=== PATIENT | male | born 1965 | race Two or more races ===

== ENCOUNTER 2019-05-18 03:28 | Emergency (ER) | payer OTHER ==
[~2019-05-18] VITALS: Ht 172.7 cm; Wt 90.7 kg
[~2019-05-18 03:28] MED LIST: ATENOLOL25 MG
== END 2019-05-18 05:46 | disposition home or self-care (01) ==
LOC: ER 03:28
DX: T18.198A Other foreign object in esophagus causing other injury, initial encounter (principal); W45.8XXA Other foreign body or object entering through skin, initial encounter; Y93.89 Activity, other specified; Y92.89 Other specified places as the place of occurrence of the external cause; Y99.8 Other external cause status

== ENCOUNTER → 2020-10-16 | Outpatient (CLI) | payer OTHER | END | disposition home or self-care (01) | LOC: PPH VACUNA | DX: Z23 Encounter for immunization (principal) ==

== ENCOUNTER 2020-11-03 09:56 | Emergency (ER) | payer OTHER ==
[~2020-11-03] VITALS: Ht 172.7 cm; Wt 88.5 kg
== END 2020-11-03 11:55 | disposition home or self-care (01) ==
LOC: ER 09:56
DX: H92.02 Otalgia, left ear (principal); G89.18 Other acute postprocedural pain

== ENCOUNTER 2020-11-06 08:47 | Outpatient (CLI) | payer OTHER | END 2020-11-06 08:48 | disposition home or self-care (01) | LOC: PPH VACUNA 08:47 | DX: Z23 Encounter for immunization (principal) ==

== ENCOUNTER 2021-01-30 14:56 | Outpatient (CLI) | payer OTHER | END 2021-01-30 14:57 | disposition home or self-care (01) | LOC: LAB 14:56 | PROVIDERS: ATTEND Surgery | DX: R97.20 Elevated prostate specific antigen [PSA] (principal) ==

== ENCOUNTER 2021-02-06 07:13 | Outpatient (CLI) | payer OTHER | END 2021-02-06 07:18 | disposition home or self-care (01) | LOC: SONOGRAMA 07:13 | PROVIDERS: ATTEND Surgery | DX: D29.1 Benign neoplasm of prostate (principal); R97.20 Elevated prostate specific antigen [PSA] ==

== ENCOUNTER 2021-09-19 08:00 | Outpatient (CLI) | payer OTHER | END 2021-09-19 08:30 | disposition home or self-care (01) | LOC: PPH VACUNA 08:00 | PROVIDERS: ATTEND Emergency Medicine Pediatric Emergency Medicine | DX: Z23 Encounter for immunization (principal) ==

== ENCOUNTER 2021-11-12 14:25 | Outpatient (CLI) | payer OTHER | END 2021-11-12 14:39 | disposition home or self-care (01) | LOC: LAB 14:25 | DX: R97.20 Elevated prostate specific antigen [PSA] (principal) ==

== ENCOUNTER 2021-12-08 07:29 | Outpatient (CLI) | payer OTHER | END 2021-12-08 07:32 | disposition home or self-care (01) | LOC: SONOGRAMA 07:29 | PROVIDERS: ATTEND Surgery | DX: R97.20 Elevated prostate specific antigen [PSA] (principal) ==

== ENCOUNTER 2024-04-30 11:47 | Emergency (ER) | payer OTHER ==
[~2024-04-30] VITALS: Ht 172.7 cm; Wt 97.1 kg
[2024-04-30] MEDS ORDERED: LOPRESSOR25 MG PO (12:26)
[2024-04-30] MEDS ORDERED: KETOROLAC TROMETHAMINE 60 MG VIAL IM ONE (12:45)
[2024-04-30] MEDS ORDERED: TETANUS & DIPHTHERIA TOX,ADULT 0.5 ML VIAL IM ONE (12:45)
[2024-04-30] MEDS ORDERED: CEFTRIAXONE SODIUM 1,000 MG VIAL IM ONE (12:45)
== END 2024-04-30 15:29 | disposition home or self-care (01) ==
LOC: ER 11:47
DX: S01.81XA Laceration without foreign body of other part of head, initial encounter (principal); X58.XXXA Exposure to other specified factors, initial encounter; Y93.89 Activity, other specified; Y92.89 Other specified places as the place of occurrence of the external cause; Y99.8 Other external cause status; I10 Essential (primary) hypertension; Z91.013 Allergy to seafood

== ENCOUNTER 2025-05-04 10:53 | Emergency (ER) | payer OTHER ==
[~2025-05-04] VITALS: Ht 172.7 cm; Wt 96.2 kg
[~2025-05-04 10:53] MED LIST changes: +LOPRESSOR25 MG PO
[2025-05-04] MEDS ORDERED: COZAAR25 MG PO (11:03)
[2025-05-04] MEDS ORDERED: KETOROLAC TROMETHAMINE 30 MG VIAL IM ONE (11:30)
[2025-05-04] MEDS ORDERED: KETOROLAC TROMETHAMINE 30 MG VIAL ONE (11:39)
[2025-05-04 12:19] LABS: URINE APPEARANCE Clear; URINE BILIRRUBIN Negative (NEGATIVE); URINE BLOOD Negative; URINE COLOR Yellow; URINE GLUCOSE Negative (NEGATIVE); URINE KETONE Negative (NEGATIVE); URINE LEUKOCYTE Negative; URINE NITRATE Negative; URINE PROTEIN Negative (NEGATIVE); URINE UROBILINOGEN 0.2 E.U./dl
[2025-05-04 12:20] LABS: BASO % 0.3 % (0.1-1.2); EOS # 0.16 (0.04-0.54); EOS % 1.4 % (0.7-7.0); LYMPH # 1.65 (1.18-3.74); LYMPH % 14.4 % (19.3-53.1); MEAN PLATELET VOLUME 10.80 fl (9.4-12.4); MONO # 0.95 (0.24-0.82); MONO % 8.3 % (4.7-12.5); NEUT # 8.64 (1.56-6.13); NEUT % 75.2 % (34.0-71.1); RED CELL DISTRIBUTION WIDTH 13.3 % (11.6-14.4)
[2025-05-04 12:23] LABS: URINE BACTERIA 7.1 uL (0.0-1933); URINE EPITHELIAL CELLS 1.9 uL (0.0-38.8); URINE RBC 3.2 uL (0.0-20.8); URINE WBC 2.4 uL (0.0-23.2)
[2025-05-04 12:41] LABS: URINE CAST 0.14 uL (0.0-1.40)
[2025-05-04 12:43] LABS: ALT/SGPT 46.0 U/L (12-78); AST/SGOT 22.0 U/L (15-37); BILIRUBIN TOTAL 1.82 mg/dL (0.3-1.2); BUN CREA RATIO 15.0 (7.0-25.0); CREATININE SERUM 1.11 mg/dL (0.70-1.30); GFR 68.04; GLOBULINA 3.6 G/DL (2.4-3.5); GLUCOSE FASTING 111.0 mg/dL (65-100); OSMOLALITY SERUM 283.0 MOSM/KG (275-295)
[2025-05-04] MEDS ORDERED: DIPHENHYDRAMINE HCL 50 MG/ML VIAL 1ML ONE (13:23)
[2025-05-04] MEDS ORDERED: METHYLPREDNISOLONE SOD SUCC 125 MG VIAL ONE (13:24)
[2025-05-04] MEDS ORDERED: METHYLPREDNISOLONE SOD SUCC 125 MG VIAL IV ONE (13:30)
[2025-05-04] MEDS ORDERED: DIPHENHYDRAMINE HCL 50 MG/ML VIAL 1ML IV ONE (13:30)
[2025-05-04] MEDS ORDERED: CIPROFLOXACIN IN 5 % DEXTROSE 400 MG/200 ML PIGGYBAG IV ONE (15:15)
[2025-05-04] MEDS ORDERED: METRONIDAZOLE/SODIUM CHLORIDE 500 MG/100 ML PIGGYBACK IV ONE (15:15)
[2025-05-04] MEDS ORDERED: METRONIDAZOLE500 MG PO ×2 (15:19→16:41)
[2025-05-04] MEDS ORDERED: TRAMADOL HCL50 MG PO (15:19)
[2025-05-04] MEDS ORDERED: CIPRO500 MG PO ×2 (15:19→16:41)
[2025-05-04] MEDS ORDERED: CIPROFLOXACIN HCL 500 MG TABLET PO ONE (16:45)
== END 2025-05-04 17:10 | disposition home or self-care (01) ==
LOC: ER 10:53
PROVIDERS: Preventive Medicine Public Health & General Preventive Medicine
DX: K57.92 Diverticulitis of intestine, part unspecified, without perforation or abscess without bleeding (principal); R10.9 Unspecified abdominal pain; I10 Essential (primary) hypertension; Z91.013 Allergy to seafood
CPT/HCPCS: 36415; 74177; Q9965